=== PATIENT | female | born 1995 | race African-American/Black ===

== ENCOUNTER 2019-09-05 23:17 | Inpatient (IN) ==
[~2019-09-05 23:17] MED LIST: DINOPROSTONE 10 MG VAG.INSERT VAG ONE
[2019-09-05] MEDS ORDERED: ONDANSETRON 4 MG/2 ML VIAL IV PRN (23:30)
[2019-09-05] MEDS ORDERED: BUTORPHANOL 2 MG/ML VIAL IV PRN (23:30)
[2019-09-05] MEDS ORDERED: OXYTOCIN/LR 20 UNIT/1,000 ML BAG IV PRN (23:30)
[2019-09-05] MEDS ORDERED: LACTATED RINGERS 1,000 ML IV SCH (23:30)
[2019-09-05 23:55] LABS: Basophils % 0.2 % (0.0-0.8); Eosinophils # 0.1 10*3/uL (0.0-0.87); Eosinophils % 0.9 % (0.00-10.9); Hematocrit 33.8 VOL% (35.7-47.0); Hemoglobin 10.8 GM/DL (12.0-16.0); Immature Granulocytes % 1.2 %; Immature Granulocytes Absolute 0.12 #; Lymphocytes # 1.7 10*3/uL (1.4-4.0); Lymphocytes % 16.8 % (21.3-54.2); Mean Corpuscular Volume 89.2 FL (87-102); Monocytes % 7.7 % (1.7-12.7); Neutrophils % 73.2 % (38.7-73.9); Platelet Count 209 T/CUMM (130-400); Red Blood Count 3.79 MC/CUMM (3.8-5.5); Red Cell Distribution Width 13.5 % (9.3-17.3); White Blood Count 10.1 T/CUMM (4-12)
[2019-09-06 00:22] LABS: Albumin 2.8 G/DL (3.4-5.0); Bilirubin,Total 0.4 MG/DL (0.2-1.0); Calcium 8.7 MG/DL (8.5-10.1); Total Protein 6.9 G/DL (6.4-8.3)
[2019-09-06] MEDS ORDERED: DINOPROSTONE 10 MG VAG.INSERT VAG ONE (01:00)
[2019-09-06 02:14] LABS: Apearance,Urine CLEAR (Clear); Bilirubin,Urine Negative (Negative); Blood, Urine Negative (Negative); Glucose,Urine (UA) Negative (Negative); Ketones,Urine Negative (Negative); Mucus,Urine Occasional /LPF (Occasional); Nitrite,Urine Negative (Negative); Protein,Urine Negative; RBC,Urine <1 /HPF (0-4); Squamous Epithelial Cell,Urine Occasional /HPF (0-10); Urine Color Yellow (Yellow); Urine Specific Gravity 1.012 (1.001-1.035); WBC,Urine 1 /HPF (0-6)
[2019-09-06] MEDS ORDERED: hydrOXYzine HCL 25 MG/1 ML VIAL IM PRN (09:13)
[2019-09-06] MEDS ORDERED: FAMOTIDINE 20 MG/2 ML VIAL IV ONE (09:13)
[2019-09-06] MEDS ORDERED: CITRIC ACID/SODIUM CITRATE 30 ML UDCUP PO ONE (09:13)
[2019-09-06] MEDS ORDERED: NALOXONE 0.4 MG/ML VIAL IV PRN (09:13)
[2019-09-06] MEDS ORDERED: PROMETHAZINE 25 MG/1 ML VIAL IM ONE (09:13)
[2019-09-06] MEDS ORDERED: ePHEDrine 50 MG/ML AMP IV PRN (09:13)
[2019-09-06] MEDS ORDERED: diphenhydrAMINE 50 MG/1 ML VIAL IV PRN ×2 (09:13)
[2019-09-06] MEDS ORDERED: LACTATED RINGERS 1,000 ML IV ONE (09:13)
[2019-09-06] MEDS ORDERED: ONDANSETRON 4 MG/2 ML VIAL IV ONE (09:13)
[2019-09-06] MEDS ORDERED: fentaNYL 2 MCG/ROPIV 0.2% EPID 100 ML EPIDURAL SCH (09:30)
[2019-09-06] MEDS ORDERED: METHYLERGONOVINE 0.2 MG/1 ML AMP ONE (14:00)
[2019-09-06] MEDS ORDERED: miSOPROStoL 200 MCG TABLET ONE (14:00)
[2019-09-06] MEDS ORDERED: OXYTOCIN/LR 20 UNIT/1,000 ML BAG IV ONE (16:52)
[2019-09-07 06:07] LABS: Basophils % 0.1 % (0.0-0.8); Eosinophils # 0.1 10*3/uL (0.0-0.87); Eosinophils % 0.4 % (0.00-10.9); Hematocrit 32.3 VOL% (35.7-47.0); Hemoglobin 10.2 GM/DL (12.0-16.0); Immature Granulocytes % 0.7 %; Lymphocytes # 1.8 10*3/uL (1.4-4.0); Lymphocytes % 13.6 % (21.3-54.2); Mean Corpuscular HGB Conc 31.6 GM/DL (32-36); Mean Corpuscular Volume 90.7 FL (87-102); Monocytes % 7.7 % (1.7-12.7); Neutrophils % 77.5 % (38.7-73.9); Platelet Count 190 T/CUMM (130-400); Red Blood Count 3.56 MC/CUMM (3.8-5.5); Red Cell Distribution Width 13.4 % (9.3-17.3); White Blood Count 13.6 T/CUMM (4-12)
[2019-09-08 11:17] VITALS: BP 130/84
== END 2019-09-08 13:45 | disposition home or self-care (01) | DRG 560 ==
LOC: N.LDOUT 23:17 → N.LD 23:18 → N.OB 09-06 17:17
PROVIDERS: ADMIT Obstetrics & Gynecology; ATTEND Obstetrics & Gynecology